=== PATIENT | female | born 1985 | race Caucasian/White ===

== ENCOUNTER 2021-10-03 17:04 | Emergency (ER) | payer OTHER ==
[~2021-10-03] VITALS: Ht 165.1 cm; Wt 122.5 kg
[2021-10-03 17:36] VITALS: BP_SYST 155
[2021-10-03 21:05] VITALS: BP_SYST 148
--- NOTE | 2021-10-03 21:11 | NUR ---
Per expediter clerk, pt LWBS.
== END 2021-10-03 21:11 | disposition left against medical advice (07) ==
LOC: SED 17:04 → MERGE 17:04 → SED 21:11
DX: R06.02 Shortness of breath (principal); Z53.21 Procedure and treatment not carried out due to patient leaving prior to being seen by health care provider